=== PATIENT | female | born 1995 | race African-American/Black ===

== ENCOUNTER 2019-08-06 16:37 | Emergency (ER) | payer OTHER ==
[~2019-08-06] VITALS: Ht 167.6 cm; Wt 60.0 kg
[2019-08-06] MEDS ORDERED: ACETAMINOPHEN 500MG TABLET PO ONE (17:30)
[2019-08-06 18:00] VITALS: BP 108/79
== END 2019-08-06 18:00 | disposition home or self-care (01) ==
LOC: ER 16:37
DX: R51 Headache (principal); M54.2 Cervicalgia; M54.9 Dorsalgia, unspecified; M25.512 Pain in left shoulder; M25.511 Pain in right shoulder; J45.909 Unspecified asthma, uncomplicated; R42 Dizziness and giddiness; R11.0 Nausea; V49.88XA Car occupant (driver) (passenger) injured in other specified transport accidents, initial encounter; Y93.89 Activity, other specified; Y92.89 Other specified places as the place of occurrence of the external cause; Y99.8 Other external cause status
CPT/HCPCS: 71045; 99283